=== PATIENT | female | born 1980 | race Caucasian/White ===

== ENCOUNTER 2017-03-19 18:53 | Emergency (ER) | payer SELFPAY ==
[~2017-03-19] VITALS: Ht 160 cm; Wt 87.0 kg
[2017-03-19] MEDS ORDERED: KETOROLAC 60MG/2ML VIAL IM ONE (23:45)
[2017-03-20 00:08] LABS: HCG SCREEN NEGATIVE
[2017-03-20 02:08] VITALS: BP 133/78
== END 2017-03-20 02:23 | disposition home or self-care (01) ==
LOC: ER 19:34
DX: M25.562 Pain in left knee (principal); M25.512 Pain in left shoulder; M54.9 Dorsalgia, unspecified; J45.909 Unspecified asthma, uncomplicated; Z88.6 Allergy status to analgesic agent
CPT/HCPCS: 71020; 72100; 73562; 84703; 96372; 99285; J1885